=== PATIENT | male | born 1930 | race Caucasian/White ===

== ENCOUNTER 2017-03-12 09:04 | Outpatient (CLI) | payer MEDICARE, OTHER ==
[~2017-03-12 09:04] MED LIST: TAMS-12
[2017-03-12] MEDS ORDERED: REGADENOSON 0.4 MG/5 ML DISP.SYRIN IVP ONE (09:30)
== END 2017-03-12 23:59 | disposition home or self-care (01) ==
LOC: NM 09:04
PROVIDERS: ATTEND Internal Medicine Cardiovascular Disease
DX: I51.89 Other ill-defined heart diseases (principal)
CPT/HCPCS: 78452; A9502; J2785

== ENCOUNTER 2017-08-13 18:07 | Inpatient (IN) | payer MEDICARE, OTHER ==
[~2017-08-13] VITALS: Ht 157.5 cm; Wt 70.3 kg
[~2017-08-13 18:07] MED LIST changes: -TAMS-12; +TAMS-12 PO
--- NOTE | 2017-08-13 18:23 | NUR ---
PATIENT PRESENTS TO ER C/O NAUSEA, VOMITING, ABDOMINAL PAIN X 2 DAYS. DENIES BOWEL MOVEMENT FOR 2 DAYS NOW. A/OX 4. BREATHING EVEN AND UNLBAORED. NO SOB. VITALS STABLE. SAFETY AND COMFORT MEASURES IN PLACE. AWAITING MD ORDERS.
--- NOTE | 2017-08-13 18:52 | NUR ---
PATIENT TAKEN TO CT VIA STRETCHER.
[2017-08-13 18:57] LABS: BASOPHILS % (AUTO) 0.1 % (0.0-2.0); HEMATOCRIT 31 % (39-51); HEMOGLOBIN 10.1 g/dL (13.5-17.5); LYMPHOCYTES # (AUTO) 1.1 /CMM (0.8-4.8); MEAN CORPUSCULAR HEMOGLOBIN 26 PG (26.0-33.0); MEAN CORPUSCULAR HGB CONC 33 g/dl (31.0-36.0); MEAN CORPUSCULAR VOLUME 80 fL (80-96); MONOCYTES # (AUTO) 1.5 /CMM (0.1-1.30); MONOCYTES % (AUTO) 9.3 % (2.0-12.0); NEUTROPHILS # (AUTO) 13.6 /CMM (1.8-8.9); NEUTROPHILS % (AUTO) 83.6 % (43.0-81.0); PLATELET COUNT (AUTO) 281 /CMM (150-450); RDW COEFFICIENT OF VARIATION 14.8 (11.5-15.0); RED BLOOD CELL COUNT(AUTO) 3.84 MIL/uL (4.5-6.0); WHITE BLOOD COUNT (AUTO) 16.2 K/uL (4.3-11.0)
[2017-08-13] MEDS ORDERED: ONDANSETRON HCL/PF 4 MG/2 ML VIAL IVP ONE (19:00)
[2017-08-13] MEDS ORDERED: IV NS 0.9% 500 ML BAG IV ONE (19:00)
[2017-08-13] MEDS ORDERED: MORPHINE SULFATE INJ 2 MG/ML DISP.SYRIN IV ONE (19:00)
[2017-08-13 19:01] LABS: CALCIUM, SERUM 9.1 mg/dL (8.5-10.1); CARBON DIOXIDE 26 mmol/L (21-32); CHLORIDE 100 mmol/L (98-107); CREATININE 2.3 mg/dL (0.6-1.3); GLUCOSE 137 mg/dL (74-106); POTASSIUM 4.3 mmol/L (3.5-5.1); SODIUM SERUM 137 mmol/L (136-145); UREA NITROGEN, BLOOD 47 mg/dL (7-18)
[2017-08-13] MEDS ORDERED: ONDANSETRON HCL/PF 4 MG/2 ML VIAL ONE (19:03)
[2017-08-13] MEDS ORDERED: MORPHINE SULFATE INJ 4 MG/ML DISP.SYRIN ONE (19:03)
[2017-08-13 19:05] LABS: INR 0.98 (0.87-1.13); PROTHROMBIN TIME 10.2 SECS (9.5-12.7)
[2017-08-13 19:07] LABS: ALANINE AMINOTRANSFERASE 15 U/L (12-78); ALBUMIN 3.8 g/dL (3.4-5.0); ALKALINE PHOSPHATASE 67 U/L (46-116); ASPARTATE AMINOTRANSFERASE 17 U/L (15-37); BILIRUBIN,DIRECT 0.1 mg/dL (0.0-0.2); BILIRUBIN,TOTAL 0.7 mg/dL (0.2-1.0); LIPASE 110 U/L (73-393); TOTAL PROTEIN, SERUM 8.4 g/dL (6.4-8.2)
[2017-08-13 19:09] LABS: TROPONIN I < 0.017 ng/mL (0.00-0.056)
--- NOTE | 2017-08-13 19:58 | NUR ---
DR VELA AT BEDSIDE TALKING TO PATIENT AND FAMILY.
[2017-08-13] MEDS ORDERED: IV NS 0.9% 1,000 ML BAG IV ONE (20:00)
[2017-08-13] MEDS ORDERED: PIPERACILLIN /TAZOBACTAM 3.375 G in IV D5W 50 ML IV ONE (20:00)
[2017-08-13] MEDS ORDERED: HEPARIN INFUSION/D5W 500 ML IV PRN (20:00)
[2017-08-13] MEDS ORDERED: PIPERACILLIN /TAZOBACTAM 3.375 G VIAL IV ONE (20:03)
[2017-08-13] MEDS ORDERED: HEPARIN INFUSION/D5W 500 ML IV ONE (20:03)
--- NOTE | 2017-08-13 20:30 | NUR ---
RECHECKED PATIENT'S WEIGHT VIA BED SCALE, RECORDED WEIGHT IS 177LBS.
[2017-08-13] MEDS ORDERED: HEPARIN SODIUM, PORCINE 5000 UNITS/1 ML VIAL ONE (20:36)
--- NOTE | 2017-08-13 20:39 | NUR ---
HEPARIN BOLUS OF 6000UNITS GIVEN PER DR ZENDEJAS'S ORDERS. VERIFIED/WITNESS WITH MARCOS OLVERA DOSING.
--- NOTE | 2017-08-13 20:39 | NUR ---
HEPARIN BOLUS OF 6000UNITS GIVEN PER DR ZENDEJAS'S ORDERS. VERIFIED WITH MARCOS MANCINI DOSING.
--- NOTE | 2017-08-13 20:40 | NUR ---
started heparin infusion at this time at 1440 based on weight calculation with verification from second nurse Calvin. Patient is due for ptt draw post 6 hours, 0240. will endorse to floor nurse. will monitor for adverse reaction; s/s of bleeding.
--- NOTE | 2017-08-13 20:40 | NUR ---
VERIFIED HERPARIN INFUSION PER PROTOCOL WITH MARCOS OLVERA. PT MEDICATED.
[2017-08-13] MEDS ORDERED: IV NS 0.9% 1,000 ML IV PRN ×2 (21:24→22:30)
[2017-08-13] MEDS ORDERED: MAGNESIUM HYDROXIDE 30 ML UDC PO PRN ×2 (21:30→22:30)
[2017-08-13] MEDS ORDERED: ONDANSETRON HCL/PF 4 MG/2 ML VIAL IVP PRN ×2 (21:30→22:30)
[2017-08-13] MEDS ORDERED: HYDROCODONE/APAP 5/325MG 1 EACH TABLET PO PRN ×2 (21:30→22:30)
[2017-08-13] MEDS ORDERED: MAG HYDROX/AL HYDROX/SIMETH 30 ML UDC PO PRN ×2 (21:30→22:30)
[2017-08-13] MEDS ORDERED: Z GUARD REMEDY 2 OZ OINT TP PRN ×2 (21:30→22:30)
[2017-08-13] MEDS ORDERED: ACETAMINOPHEN 325 MG TABLET PO PRN ×2 (21:30→22:30)
[2017-08-13] MEDS ORDERED: MORPHINE SULFATE INJ 2 MG/ML DISP.SYRIN IV PRN (21:30)
--- NOTE | 2017-08-13 21:58 | NUR ---
PT ASSIGNED TO 325-1
--- NOTE | 2017-08-13 22:04 | NUR ---
Report given to Miguel RODRÍGUEZ for tele admission for darien.
[2017-08-13 22:15] VITALS: BP 153/72
--- NOTE | 2017-08-13 22:19 | NUR ---
Transferred to [facility] bed 324-2 via als protocol, no incident noted.
--- NOTE | 2017-08-13 22:40 | NUR ---
HEALTHCARE FACILITY ADMINISTRATOR NOTES RECEIVED PATIENT FROM ER ON A GURNEY TO ROOM 324-2, A & O X 3, GAMBIAN SPEAKING. RESP EVEN & NON LABORED. ON 2LPM O2 VIA NC. IV ACCESS TO LAC, INTACT PATENT, NO S/S OF INFECTION NOTED. PATIENT HAD C/O MILD ABDOMINAL PAIN BUT REFUSED TO TAKE MEDICINE AT THIS TIME, ABLE TO TOLERATE WITHOUT PAIN MEDICINE. CONTINENT OF B & BM, BRP. AMBULATORY WITHOUT ASSISTANCE.V/S CHECKED & DOCUMENTED. ON TELEMETRY MONITORING WITH SR 80. NO NAUSEA/VOMITING UPON ARRIVING TO THE UNIT. HAS LEFT HEARING AID. BED IN LOW LOCKED POSITION. ON HEPARIN IV DRIP ORDERED BY MD.CALL LIGHT WITHIN REACH. MD AWARE. ALL NEEDS ATTENDED & MET. WILL CONTINUE TO OBSERVE CLOSELY.
[2017-08-14] VITALS (11 sets, daily range): BP systolic 127–154; BP diastolic 48–89
[2017-08-14] MEDS ORDERED: PIPERACILLIN /TAZOBACTAM 3.375 G in IV D5W 50 ML IV SCH ×2
[2017-08-14] MEDS ORDERED: PIPERACILLIN /TAZOBACTAM 3.375 G VIAL IV ONE ×2 (00:40→05:52)
--- NOTE | 2017-08-14 01:00 | NUR ---
LOOKBACK COORDINATOR NOTES NEW IV LINE INSERTED ON LEFT HAND WITH GOOD BLOOD FLOW TO CONTINUE IV MEDS. WILL OBSERVE CLOSELY.
[2017-08-14 03:54] LABS: INR 1.08 (0.87-1.13); PROTHROMBIN TIME 11.2 SECS (9.5-12.7)
--- NOTE | 2017-08-14 04:35 | NUR ---
SHAREPOINT ADMIN NOTES PATIENTS PTT RESULTS WERE ABNORMAL 155, MADE AWARE WITH NEW ORDER TO HOLD HEPARIN DRIP & RECHECK PTT LEVEL AGAIN AT 0800. NOTED & CARRIED OUT. NO S/S OF ACTIVE BLEEDING NOTED AT THIS TIME. PATIENT IS SLEEPING COMFORTABLY. WILL MONITOR CLOSELY.
[2017-08-14] MEDS: PIPERACILLIN /TAZOBACTAM 3.375 G in IV D5W 50 ML IV SCH ×3 (06:17)
--- NOTE | 2017-08-14 06:26 | NUR ---
CLOCK AND WATCH HANDS DIPPER NOTES PATIENT SLEPT INTERMITTENTLY. HAD MILD C/O PAIN IN RIGHT ABDOMEN BUT REFUSED TO TAKE PAIN MEDICINE. NO OTHER DISCOMFORT, NO NAUSEA/VOMITING NOTED. HEPARIN DRIP ON HOLD ORDERED BY UVALDO JACKSON. IV ACCESS TO LAC & LEFT HAND, INTACT PATENT. IV FLUIDS RUNNING AT 75ML/HR. NPO. BED IN LOW LOCKED POSITION. CALL LIGHT WITHIN REACH. WILL ENDORSE TO AM SHIFT.
--- NOTE | 2017-08-14 06:42 | NUR ---
MS RN NOTES PATIENT IS ON O2 AT 2LPM VIA NC FOR EASY BREATHING & COMFORT. HOB IN SEMI MADDOX POSITION. MONITORING CLOSELY.
[2017-08-14] MEDS ORDERED: PANTOPRAZOLE 40 MG TABLET.DR PO SCH ×2 (07:30)
[2017-08-14] MEDS: DOCUSATE SODIUM 100 MG CAPSULE PO SCH ×2 (08:47→17:00)
[2017-08-14] MEDS: TAMSULOSIN 0.4 MG CAP.SR.24H PO SCH (08:47)
[2017-08-14] MEDS ORDERED: TAMSULOSIN 0.4 MG CAP.SR.24H PO SCH (09:00)
[2017-08-14] MEDS ORDERED: DOCUSATE SODIUM 100 MG CAPSULE PO SCH (09:00)
[2017-08-14] MEDS ORDERED: CARV6.252 PO (10:08)
[2017-08-14] MEDS ORDERED: ROSU20TA PO (10:08)
[2017-08-14] MEDS ORDERED: ASPI81TA2 PO (10:08)
[2017-08-14] MEDS ORDERED: LEVO50TA8 PO (10:08)
[2017-08-14] MEDS ORDERED: GLIM1TAB2 PO (10:08)
[2017-08-14] MEDS ORDERED: LOSA1TAB36 PO (10:08)
[2017-08-14] MEDS ORDERED: DUTA0.5C PO (10:08)
[2017-08-14] MEDS ORDERED: DULO30CA2 PO (10:08)
[2017-08-14] MEDS ORDERED: FURO40TA5 PO (10:08)
[2017-08-14] MEDS ORDERED: ISOS30TA6 PO (10:08)
[2017-08-14] MEDS ORDERED: ESOM40CA PO (10:08)
[2017-08-14] MEDS ORDERED: AMLO10TA2 PO (10:08)
[2017-08-14] MEDS ORDERED: TRAM50TA2 PO (10:11)
[2017-08-14] MEDS ORDERED: ALBU18HF2 INH (10:11)
[2017-08-14 10:16] LABS: HEMATOCRIT 27 % (39-51); HEMOGLOBIN 8.9 g/dL (13.5-17.5); LYMPHOCYTES # (AUTO) 1.5 /CMM (0.8-4.8); LYMPHOCYTES % (AUTO) 6.3 % (20.0-44.0); MEAN CORPUSCULAR HEMOGLOBIN 26 PG (26.0-33.0); MEAN CORPUSCULAR HGB CONC 33 g/dl (31.0-36.0); MEAN CORPUSCULAR VOLUME 80 fL (80-96); MONOCYTES # (AUTO) 2.9 /CMM (0.1-1.30); MONOCYTES % (AUTO) 12.5 % (2.0-12.0); NEUTROPHILS # (AUTO) 18.9 /CMM (1.8-8.9); NEUTROPHILS % (AUTO) 81.2 % (43.0-81.0); PLATELET COUNT (AUTO) 226 /CMM (150-450); RDW COEFFICIENT OF VARIATION 16.1 (11.5-15.0); RED BLOOD CELL COUNT(AUTO) 3.41 MIL/uL (4.5-6.0); WHITE BLOOD COUNT (AUTO) 23.3 K/uL (4.3-11.0)
--- NOTE | 2017-08-14 10:30 | NUR ---
MANAGER RETAIL STORE NOTES PATIENT SEEN AND EVALUATED BY DR. GALDAMEZ ORDERS TO DISCONTINUE HEPARIN, AND OBTAIN MEDICAL CLEARANCE FOR LAPAROSCOPY WITH POSSIBLY LAPAROTOMY. PATIENT AGREED FOR PROCEDURE AWAITING FOR CARDIO CLEARANCE.
[2017-08-14 10:32] LABS: CALCIUM, SERUM 8.1 mg/dL (8.5-10.1); CARBON DIOXIDE 23 mmol/L (21-32); CHLORIDE 104 mmol/L (98-107); CREATININE 2.1 mg/dL (0.6-1.3); GLUCOSE 132 mg/dL (74-106); MAGNESIUM 1.7 mg/dL (1.8-2.4); POTASSIUM 4.2 mmol/L (3.5-5.1); SODIUM SERUM 139 mmol/L (136-145); UREA NITROGEN, BLOOD 37 mg/dL (7-18)
[2017-08-14] MEDS: MORPHINE SULFATE INJ 2 MG/ML DISP.SYRIN IV PRN ×2 (10:41→18:29)
[2017-08-14 10:43] LABS: BAND % (MANUAL) 8 % (0.0-5.0); LYMPHOCYTES % (MANUAL) 5 % (16-48); MONOCYTES % (MANUAL) 9 % (0-11.0); NEUTROPHILS % (MANUAL) 78 (42-76)
[2017-08-14] MEDS: PIPERACILLIN /TAZOBACTAM 2.25 G in IV D5W 50 ML IV SCH ×2 (13:32→21:25)
--- NOTE | 2017-08-14 18:11 | NUR ---
RANGELAND MANAGEMENT SPECIALIST NOTES PATIENT RE EVALUATED BY DOCTOR GALDAMEZ WITH ORDERS TO CANCEL SCHEDULED SURGERY (LAPARASCOPY, WITH POSSIBLE LAPARATOMY). ORDERS TO START D5 1/2 NS WITH 20MEQ AT 150 MLS/HR. STAT CBC AND ROUTINE CBC IN THE AM. ORDERS NOTED AND CARRIED OUT. WILL CONTINUE TO MONITOR.
--- NOTE | 2017-08-14 18:40 | NUR ---
COMPUTER TEACHER NOTES PATIENT RE EVALUATED BY JAMES FUENTES NP WITH ORDERS TO TRANSFER TO ICU FOR CLOSER MONITORING. PATIENT WAS TRANSFERRED TO ICU. HEPARIN DRIP WILL BE STARTED AFTER PTT RESULTS. D5 1/2 NS WITH 20MEQ AT 150ML/HR. REPORT GIVEN TO TOVA AT BEDSIDE. .
[2017-08-14] MEDS ORDERED: FEE PK DOSING 1 MIN EA MC ONE (18:44)
[2017-08-14 18:49] LABS: BASOPHILS % (AUTO) 0.1 % (0.0-2.0); HEMATOCRIT 26 % (39-51); HEMOGLOBIN 8.5 g/dL (13.5-17.5); LYMPHOCYTES # (AUTO) 1.5 /CMM (0.8-4.8); LYMPHOCYTES % (AUTO) 8.5 % (20.0-44.0); MEAN CORPUSCULAR HEMOGLOBIN 27 PG (26.0-33.0); MEAN CORPUSCULAR HGB CONC 33 g/dl (31.0-36.0); MEAN CORPUSCULAR VOLUME 80 fL (80-96); MONOCYTES # (AUTO) 2.5 /CMM (0.1-1.30); MONOCYTES % (AUTO) 14.6 % (2.0-12.0); NEUTROPHILS # (AUTO) 13.3 /CMM (1.8-8.9); NEUTROPHILS % (AUTO) 76.8 % (43.0-81.0); PLATELET COUNT (AUTO) 208 /CMM (150-450); WHITE BLOOD COUNT (AUTO) 17.4 K/uL (4.3-11.0)
--- NOTE | 2017-08-14 18:55 | NUR ---
FINISHED CIGAR MAKER- RECEIVED PT TRANSFER FROM [facility]. BEDSIDE REPORT GIVEN FROM KRISTEL RODRÍGUEZ. PT A/O X3, SLOVAK SPEAKING. FAMILY AT BEDSIDE. SINUS RHYTHM ON THE MONITOR. PT ON 2L NC, NO SOB OR DISTRESS PRESENT. SAFETY MEASURES TAKEN: BED LOCKED AND IN LOW POSITION, SIDE RAILS UP X2, BED ALARM ON AND CALL LIGHT WITHIN REACH. WILL GIVE REPORT TO ONCOMING NURSE AND ENDORSE NEW ORDERS.
--- NOTE | 2017-08-14 19:30 | NUR ---
BOX MACHINE OPERATOR: RECEIVED AZERI SPEAKING (WT THAI BASIC WORDS) PT A/O X3. ON 2L 02 VIA NC WT NO ACUTE DISTRESS. NO C/O PAIN OR EVIDENCE OF DISCOMFORT. SR ON MONITOR. AFEBRILE. AWAITING PHARMACY TO DELIVER HEPARIN DRIP FOR RESTART WT PTT=35. ALSO AWAITING CONSENT FROM RESPONSIBLE REPUBLICAN FOR PICC LINE PLACEMENT. SAFETY PRECAUTION NOTED.
[2017-08-14] MEDS: VANCOMYCIN 500 MG in IV D5W 100 ML IV SCH (21:03)
[2017-08-14] MEDS: Potassium Chloride 20 MEQ in IV D5/0.45 NACL 1,000 ML IV PRN (21:25)
[2017-08-14] MEDS: FAMOTIDINE/PF INJ 20 MG/2 ML VIAL IV SCH (21:43)
[2017-08-14] MEDS: HEPARIN INFUSION/D5W 500 ML IV PRN (22:22)
--- NOTE | 2017-08-14 23:00 | NUR ---
ELECTRICAL CONTROLS ASSEMBLER: PICC LINE INSERTED ON JAN AND TOLERATED WELL. HEPARIN RESTARTED AT 2222 AT 1250U/HR AND WILL REDRAW PTT IN AM. NO ACTIVE BLEEDING, NO SIGNIFICANT TEX. WILL CONTINUE TO MONITOR.
[2017-08-15] VITALS (28 sets, daily range): BP systolic 115–157; BP diastolic 37–128
--- NOTE | 2017-08-15 02:30 | NUR ---
CURBER: PT ASLEEP, EASILY AROUSABLE WHEN TOUCHED. SR-SB ON MDM DEVELOPER. VS WITHIN HIS BASELINE. NO ACTIVE BLEEDING NOTED FROM HEPARIN INFUSION. WILL CONTINUE TO MONITOR.
[2017-08-15] MEDS: MORPHINE SULFATE INJ 2 MG/ML DISP.SYRIN IV PRN ×5 (03:23→21:18)
[2017-08-15] MEDS: PIPERACILLIN /TAZOBACTAM 2.25 G in IV D5W 50 ML IV SCH ×3 (04:31→21:39)
[2017-08-15] MEDS: Potassium Chloride 20 MEQ in IV D5/0.45 NACL 1,000 ML IV PRN ×3 (04:59→21:40)
[2017-08-15 05:09] LABS: HEMATOCRIT 24 % (39-51); HEMOGLOBIN 7.8 g/dL (13.5-17.5); LYMPHOCYTES # (AUTO) 1.2 /CMM (0.8-4.8); LYMPHOCYTES % (AUTO) 7.6 % (20.0-44.0); MEAN CORPUSCULAR HEMOGLOBIN 27 PG (26.0-33.0); MEAN CORPUSCULAR HGB CONC 33 g/dl (31.0-36.0); MEAN CORPUSCULAR VOLUME 81 fL (80-96); MONOCYTES # (AUTO) 2.4 /CMM (0.1-1.30); MONOCYTES % (AUTO) 15.3 % (2.0-12.0); NEUTROPHILS # (AUTO) 12.2 /CMM (1.8-8.9); NEUTROPHILS % (AUTO) 77.1 % (43.0-81.0); PLATELET COUNT (AUTO) 192 /CMM (150-450); RDW COEFFICIENT OF VARIATION 16.7 (11.5-15.0); RED BLOOD CELL COUNT(AUTO) 2.93 MIL/uL (4.5-6.0); WHITE BLOOD COUNT (AUTO) 15.8 K/uL (4.3-11.0)
[2017-08-15 05:29] LABS: CALCIUM, SERUM 7.7 mg/dL (8.5-10.1); CARBON DIOXIDE 23 mmol/L (21-32); CHLORIDE 104 mmol/L (98-107); GLUCOSE 185 mg/dL (74-106); POTASSIUM 3.9 mmol/L (3.5-5.1); SODIUM SERUM 137 mmol/L (136-145); UREA NITROGEN, BLOOD 30 mg/dL (7-18)
--- NOTE | 2017-08-15 05:50 | NUR ---
FEATHER STITCHER: PTT RESULT OF 72. DECREASED HEPARIN DRIP TO 1100U/HR FROM 1250U/HR WITNESSED BY MARCOS BUCHANAN. PT REMAINED A/O X3. NO ACUTE DISTRESS, NO EVIDENCE OF DISCOMFORT, NO OVERT BLEEDING NOTED. REFUSED BED/SPONGE BATH AT THIS TIME. PT VERBALIZED HE WANTED TO SLEEP MORE AND WILL CLEAN HIMSELF LATER. VS WITHIN HIS BASELINE. SAFETY PRECAUTION NOTED AT ALL TIMES.
--- NOTE | 2017-08-15 07:45 | NUR ---
ICU/RN - Initial Notes Received pt in bed alert and oriented x3, Liberian speaking. Respirations are even and unlabored. On o2 @ 2lpm via nasal cannula. Complains of abdominal discomfort. SR 66 on the monitor. JAN PICC noted with IVF infusing well. Heparin gtt infusing per protocol. Pt kept NPO as ordered. Safety and comfort measures in place. Will continue to monitor pt closely.
[2017-08-15] MEDS: DOCUSATE SODIUM 100 MG CAPSULE PO SCH ×2 (08:00→16:56)
[2017-08-15] MEDS: TAMSULOSIN 0.4 MG CAP.SR.24H PO SCH (08:01)
[2017-08-15] MEDS: FAMOTIDINE/PF INJ 20 MG/2 ML VIAL IV SCH ×2 (08:07→21:22)
--- NOTE | 2017-08-15 08:07 | NUR ---
ICU/RN - Notes Pt complains of abdominal pain on pain scale 10 out of 10. Administered Morphine 2mg IVP as ordered for PRN pain. Comfort measures rendered. Will reassess pain accordingly.
[2017-08-15] MEDS ORDERED: DIATR MEGLU/DIATRIZOATE SODIUM 30 ML BOTTLE (GASTROGRAPHIN) ONE (10:21)
--- NOTE | 2017-08-15 10:50 | NUR ---
ICU/RN - Notes Pt complains of abdominal pain 08/19, received one time order to give Morphine 4mg IVP and Zofran 4mg IVP. Order carried out. Will reassess pain accordingly.
[2017-08-15] MEDS ORDERED: MORPHINE SULFATE INJ 4 MG/ML DISP.SYRIN IV ONE (11:00)
--- NOTE | 2017-08-15 13:49 | NUR ---
ICU/RN - Notes Pt taken to radiology for CT abdomen/pelvis via ACLS protocol.
--- NOTE | 2017-08-15 16:50 | NUR ---
ICU/RN - Notes Lazaro Gan NP discussing with family CT Abdomen/pelvis results. New orders received. Will carry out.
[2017-08-15] MEDS: METRONIDAZOLE 500MG/ NS 100ML 500 MG in PREMIX 1 EA IV SCH (17:14)
--- NOTE | 2017-08-15 18:25 | NUR ---
ICU/RN - Notes Dr Del Cid speaking with family at bedside. New orders received to start pt on clear liquids until midnight, and stop Heparin gtt at midnight. Will carry out.
--- NOTE | 2017-08-15 19:00 | NUR ---
ICU/RN - Notes Pt eating dinner with no issues at this time. Report given to PM nurse for continuity of care.
--- NOTE | 2017-08-15 19:35 | NUR ---
MILIEU COORDINATOR: DR. ESCOBEDO (GI) CAME TO UNIT AND EXAMINED PT. ALSO SPOKE WT SONS DAYA AND SHAQUILLE RE PT CONDITION THAT GI HAS NOTHING TO DO WITH IT AND UP TO SURGICAL MANAGEMENT.
[2017-08-15] MEDS: HEPARIN INFUSION/D5W 500 ML IV PRN (19:56)
[2017-08-15] MEDS ORDERED: IV NS 0.9% 250 ML IV PRN (20:00)
[2017-08-15] MEDS: VANCOMYCIN 500 MG in IV D5W 100 ML IV SCH (20:25)
--- NOTE | 2017-08-15 20:35 | NUR ---
POWER EQUIPMENT MECHANICS INSTRUCTOR: STARTED PRBC TRANSFUSION BUT WAS ACCIDENTALLY RECORDED UNDER NILDA GARLAND RN. WILL MONITOR FOR ADVERSE CHANGES.
--- NOTE | 2017-08-15 23:30 | NUR ---
RN LABOR DELIVERY: 1 UNIT PRBC TRANSFUSED. NO ADVERSE REACTIONS AT THIS TIME. TEMP NOTED 99.0 AT THE START OF THE SHIFT AND NOW AT 99.9. CONTINUE COOLING MEASURES. TYLENOL GIVEN ORDERED FOR ABDOMINAL PAIN AFTER MORPHINE ADMINISTRATION AND VERBALIZED STILL HURTING (01/17). WILL CONTINUE TO MONITOR.
[2017-08-16] VITALS (25 sets, daily range): BP systolic 110–165; BP diastolic 38–89
--- NOTE | 2017-08-16 | NUR ---
MANAGER INTEL: STOPPED HEPARIN DRIP AND NOW ON NPO STATUS ORDERED. NO ACTIVE BLEEDING NOTED.
[2017-08-16] MEDS: METRONIDAZOLE 500MG/ NS 100ML 500 MG in PREMIX 1 EA IV SCH ×3 (00:34→16:12)
[2017-08-16] MEDS: MORPHINE SULFATE INJ 2 MG/ML DISP.SYRIN IV PRN ×5 (01:34→20:32)
--- NOTE | 2017-08-16 02:00 | NUR ---
HIGH VOLTAGE ELECTRICIAN: REMOVED LEFT ANTECUBITAL IV ACCESS PER PT REQUEST AND TOLERATED WELL. 02 THERAPY INCREASED TO 5LPM VIA NC D/T SOB AFTER ASSISTANCE WT REPOSITIONING. 02 SAT 96% AND ABOVE.
[2017-08-16] MEDS: LORAZEPAM INJ 2 MG/ML VIAL IV PRN ×2 (03:35→19:17)
--- NOTE | 2017-08-16 04:05 | NUR ---
LITHOGRAPH PRESS OPERATOR TINWARE: REASSESSED AFTER GIVEN ATIVAN (PT. WAS VERBALIZING IN BELARUSIAN VIA SPINNER CONCRETE PIPE THAT HE COULD NOT SLEEP WELL HE WAS ANXIOUS RE POSSIBLE SURGERY TODAY AND WANTED MED. TO CALM HIM DOWN) WT GOOD EFFECT. PT EYES CLOSED AT THIS TIME WT NO RESTLESSNESS. NO LABORED BREATHING. VS WITHIN HIS BASELINE. SAFETY PRECAUTION NOTED.
[2017-08-16 05:02] LABS: BASOPHILS % (AUTO) 0.2 % (0.0-2.0); EOSINOPHILS % (AUTO) 0.1 % (0.0-6.0); HEMATOCRIT 25 % (39-51); HEMOGLOBIN 8.5 g/dL (13.5-17.5); LYMPHOCYTES # (AUTO) 1.5 /CMM (0.8-4.8); LYMPHOCYTES % (AUTO) 12.7 % (20.0-44.0); MEAN CORPUSCULAR HEMOGLOBIN 27 PG (26.0-33.0); MEAN CORPUSCULAR HGB CONC 34 g/dl (31.0-36.0); MEAN CORPUSCULAR VOLUME 81 fL (80-96); MONOCYTES # (AUTO) 2.3 /CMM (0.1-1.30); MONOCYTES % (AUTO) 19.3 % (2.0-12.0); NEUTROPHILS # (AUTO) 7.9 /CMM (1.8-8.9); NEUTROPHILS % (AUTO) 67.7 % (43.0-81.0); PLATELET COUNT (AUTO) 169 /CMM (150-450); RDW COEFFICIENT OF VARIATION 15.9 (11.5-15.0); RED BLOOD CELL COUNT(AUTO) 3.13 MIL/uL (4.5-6.0); WHITE BLOOD COUNT (AUTO) 11.7 K/uL (4.3-11.0)
[2017-08-16 05:14] LABS: CALCIUM, SERUM 7.2 mg/dL (8.5-10.1); CARBON DIOXIDE 23 mmol/L (21-32); CHLORIDE 107 mmol/L (98-107); GLUCOSE 135 mg/dL (74-106); MAGNESIUM 1.5 mg/dL (1.8-2.4); POTASSIUM 4.5 mmol/L (3.5-5.1); SODIUM SERUM 138 mmol/L (136-145); UREA NITROGEN, BLOOD 21 mg/dL (7-18)
[2017-08-16] MEDS: PIPERACILLIN /TAZOBACTAM 2.25 G in IV D5W 50 ML IV SCH ×3 (05:21→20:06)
--- NOTE | 2017-08-16 05:45 | NUR ---
EMPLOYMENT PROGRAM REPRESENTATIVE:RECEIVED K=2.7, KIESHA TREVINO. AWAITING TO CALL BACK. NO TEX.
[2017-08-16] MEDS: Potassium Chloride 20 MEQ in IV D5/0.45 NACL 1,000 ML IV PRN (05:52)
--- NOTE | 2017-08-16 06:15 | NUR ---
EQUIPMENT MAINTENANCE SUPERINTENDENT: RELAYED MG=1.5 TO UVALDO JACKSON WT ORDER TO GIVE MG 3GM IV. NOTED AND CARRIED OUT. NO SIGNIFICANT ETX DURING THE SHIFT. REMAINED A/O X3. ABDOMINAL DISTENTION MORE PRONOUNCED COMPARED FROM A DAY AGO. MORPHINE AND ACETAMINOPHEN GIVEN NEEDED FOR ABDOMINAL PAIN WT MIN. TO GOOD RELIEF. REFUSED AM CARE AND WANTED TO SLEEP MORE AND SAID HE WILL DO IT LATER DURING THE DAY. ALL NEEDS MET. SAFETY PRECAUTION NOTED AT ALL TIMES. CALL LIGHT WITHIN REACH.
[2017-08-16] MEDS ORDERED: Magnesium 1GM/D5W 100ML PREMIX 100 ML IV ONE (06:16)
[2017-08-16] MEDS: Magnesium 1GM/D5W 100ML PREMIX 100 ML IV SCH ×3 (06:25→09:08)
[2017-08-16] MEDS: DOCUSATE SODIUM 100 MG CAPSULE PO SCH ×2 (07:53→16:18)
[2017-08-16] MEDS: TAMSULOSIN 0.4 MG CAP.SR.24H PO SCH (07:53)
[2017-08-16] MEDS: FAMOTIDINE/PF INJ 20 MG/2 ML VIAL IV SCH ×2 (07:56→20:06)
[2017-08-16 09:14] LABS: ABG BASE EXCESS -6.1 mmol/L; ABG OXYGEN SATURATION 91.7 % (92.0-98.5); ABG PCO2 30.2 mmHg (35.0-45.0); AaDO2 186.5 mmHg; COHb 0.3 % (0.5-1.5); MetHb 0.6 % (0.0-1.5); O2Hb 90.9 % (94.0-97.0); SITE, ABG Right Radial; VENT MODE, BG Nasal Cannula
[2017-08-16] MEDS ORDERED: BUMETANIDE INJ 4 MG in IV D5W 24 ML IV ONE (10:30)
--- NOTE | 2017-08-16 11:30 | NUR ---
ICU/LOWERATOR OPERATOR OF CARE REPORT RECEIVED FROM NURSE HICKMAN, ENDORSED TO CONTINUE CARE. ON GOING MONITORING.
--- NOTE | 2017-08-16 12:38 | NUR ---
ICU/RN ROUNDS - DR. JOY FOLLOW-UP ON ENDORSEMENT TO ASK NEPHROLOGISTS IF MD WANTS TO GIVE ANY LASIX POST BLOOD TRANSFUSION MIDNIGHT TONIGHT, PER DR. JOY, NO. NOTED, CHARGE NURSE MADE AWARE. MONITORING CONTINUED.
[2017-08-16] MEDS: METOPROLOL TARTRATE INJ 5 MG/5 ML AMPUL IVP SCH ×2 (15:24→20:30)
--- NOTE | 2017-08-16 17:00 | NUR ---
ICU/RN AFTERNOON ROUNDS NO ACUTE CHANGE OF CONDITION. MONITORING CONTINUED.
[2017-08-16] MEDS ORDERED: IV NS 0.9% 500 ML BAG IV ONE (19:00)
[2017-08-16 19:05] LABS: POTASSIUM 4.2 mmol/L (3.5-5.1)
--- NOTE | 2017-08-16 19:07 | NUR ---
RN;ICU; PT RECEIVED IN BED ALERT AND ABLE TO FOLLOW COMMANDS, BUT VERY ANXIOUS. PT NONCOMPLIANT AND ATTEMPTING TO GET OUT OF BED TO URINATE. PT EDUCATED SEVERAL TIMES NOT TO GET OUT OF BED HE MIGHT PULL OUT HIS PICC LINE OR FALL. CHARGE NURSE ED AT BEDSIDE FOR TRANSLATION PT IS ERITREAN SPEAKING ONLY. ED CHARGE NURSE OBTAINED ORDERS FOR CROUCH CATH PT IS RECEIVING BUMEX GTT AND THIS PATIENT EASILY DESATURATES WITH ACTIVITY. PT NOTED TO HAVE DIFFUSE ABDOMINAL PAIN WITH NOTABLE DISTENTION. PT RECEIVING MORPHINE PRN FOR PAIN MANAGEMENT. PER PREVIOUS SHIFT PT IS TO HAVE EXPLORATORY LAPAROTOMY TOMORROW BY DR. GALDAMEZ AND THAT ONE UNIT OF PRBC SHOULD BE TX AT 0000, WITH ONE UNIT ON HAND FOR SX. CONSENT FOR PROCEDURE, BLOOD AND ANESTHESIA IN CHART. FALL PRECAUTIONS IN PLACE. WILL CONTINUE TO MONITOR CLOSELY.
--- NOTE | 2017-08-16 19:08 | NUR ---
ICU/RN AM SHIFT END NOTES NO ACUTE CHANGE OF CONDITION NOTED DURING THE SHIFT. NEEDS MET. PT ENDORSED TO PM NURSE TO CONTINUE CARE. PT REMAINS ON NPO STATUS. ALSO ENDORSED TO PM NURSE TO TRANSFUSED 1 UNIT OF PRBC AT MIDNIGHT, THEN ORDER 1 UNIT OF PRBC FOR OR STANDBY FOR SCHEDULED LAP PROCEDURE IN AM AND COMPLETE PRE-OP CHECKLIST. CL WITHIN REACHED AND SAFETY MAINTAINED.
--- NOTE | 2017-08-16 19:26 | NUR ---
RN:ICU: CROUCH CATH INSERTED BY CHARGE NURSE ED. LARGE AMOUNT OF URINE DRAINING FROM CROUCH AFTER INSERTION. PT REPORTS RELIEVE BUT IS STILL EXTREMELY ANXIOUS AND DESATURATING DUE TO PAIN. PAIN MEDICATION NOT DUE YET, ATIVAN GIVEN FOR RESTLESSNESS. O2 SAT 90-91% ON 6 L. BED ALARM ON. WILL CONTINUE TO MONITOR CLOSELY.
--- NOTE | 2017-08-16 22:11 | NUR ---
RN:ICU: PT BECOMING CONFUSED, PER FAMILY MEMBER PT DOES NOT UNDERSTAND WHAT IS GOING ON. BLOOD SUGAR CHECKED AND IS WNL. VSS. WILL CONTINUE TO MONITOR CLOSELY.
[2017-08-17] VITALS (73 sets, daily range): BP systolic 87–176; BP diastolic 45–93
[2017-08-17] MEDS: METRONIDAZOLE 500MG/ NS 100ML 500 MG in PREMIX 1 EA IV SCH ×3 (00:06→17:33)
--- NOTE | 2017-08-17 01:15 | NUR ---
RN:ICU: PT RESTING COMFORTABLY IN BED. FAMILY WENT HOME FOR THE NIGHT. PT RECEIVING 1 UNIT PRBC PER MD ORDERS AT 0000, PRIOR TO PROCEDURE. PT IS SCHEDULED AT 0800 10/8 FOR LAPAROSCOPY WITH POSSIBLE LAPAROTOMY. ONE UNIT OF PRBC PLACED ON HOLD FOR OR. ALL CONSENTS SIGNED AND PLACED IN CHART. SPOKE WITH BLOOD BANK AND HE STATED THAT A NEW TYPE AND CROSS MUST BE ORDERED TOMORROW AT 1131 THE PREVIOUS DRAW WILL BE . SO IN ORDER TO OBTAIN ANY MORE BLOOD, A NEW TYPE AND SCREEN MUST BE OBTAINED. PER BLOOD BANK EVEN IF THE PROCEDURE LASTS PAST THE TIME WHEN THE TYPE AND SCREEN EXPIRES THEY WILL STILL BE ABLE TO USE THE PRBC ORDERED NOW. WILL ENDORSE TO ONCOMING SHIFT. DISCUSSED POC WITH FAMILY. VSS.
[2017-08-17] MEDS: METOPROLOL TARTRATE INJ 5 MG/5 ML AMPUL IVP SCH ×4 (03:44→20:59)
[2017-08-17] MEDS: PIPERACILLIN /TAZOBACTAM 2.25 G in IV D5W 50 ML IV SCH ×3 (04:47→20:15)
[2017-08-17 05:02] LABS: BASOPHILS % (AUTO) 0.2 % (0.0-2.0); EOSINOPHILS % (AUTO) 0.1 % (0.0-6.0); HEMATOCRIT 34 % (39-51); HEMOGLOBIN 11.2 g/dL (13.5-17.5); LYMPHOCYTES # (AUTO) 1.3 /CMM (0.8-4.8); MEAN CORPUSCULAR HEMOGLOBIN 27 PG (26.0-33.0); MEAN CORPUSCULAR HGB CONC 33 g/dl (31.0-36.0); MEAN CORPUSCULAR VOLUME 82 fL (80-96); MONOCYTES # (AUTO) 2.1 /CMM (0.1-1.30); MONOCYTES % (AUTO) 19.8 % (2.0-12.0); NEUTROPHILS # (AUTO) 7.1 /CMM (1.8-8.9); NEUTROPHILS % (AUTO) 67.9 % (43.0-81.0); PLATELET COUNT (AUTO) 216 /CMM (150-450); RDW COEFFICIENT OF VARIATION 15.8 (11.5-15.0); RED BLOOD CELL COUNT(AUTO) 4.12 MIL/uL (4.5-6.0); WHITE BLOOD COUNT (AUTO) 10.5 K/uL (4.3-11.0)
[2017-08-17 05:17] LABS: CALCIUM, SERUM 8.1 mg/dL (8.5-10.1); CARBON DIOXIDE 26 mmol/L (21-32); CHLORIDE 105 mmol/L (98-107); CREATININE 2.2 mg/dL (0.6-1.3); GLUCOSE 96 mg/dL (74-106); MAGNESIUM 1.9 mg/dL (1.8-2.4); PHOSPHORUS 3.4 mg/dL (2.5-4.9); SODIUM SERUM 138 mmol/L (136-145); UREA NITROGEN, BLOOD 22 mg/dL (7-18)
[2017-08-17 05:18] LABS: INR 1.1 (0.87-1.13); PROTHROMBIN TIME 11.4 SECS (9.5-12.7)
--- NOTE | 2017-08-17 05:29 | NUR ---
RN:ICU: ED CHARGE NURSE AT THE BEDSIDE FOR TRANSLATION. PT INFORMED THAT HE IS SCHEDULED FOR SURGERY AT 0800 THIS MORNING. PT UNDERSTANDS THE PROCEDURE THAT IS BEING PERFORMED AND DOES NOT HAVE ANY FURTHER QUESTIONS AT THIS TIME. PT HAS BEEN NPO FOR THE FULL DURATION OF THIS SHIFT. OFFERED AM CARE TO PATIENT, BUT PATIENT DECLINED. PT CONTINUES TO DECLINE ANY PAIN MEDICATION OR ANTIANXIETY MEDICATIONS AT THIS TIME. PT STATES THAT HE JUST WANTS TO GO HOME SOON. REASSURANCE AND PREOP TEACHING PERFORMED WITH ED AT THE BEDSIDE FOR TRANSLATION. NO ACUTE DISTRESS. VSS. WILL CONTINUE TO MONITOR CLOSELY.
--- NOTE | 2017-08-17 06:56 | NUR ---
RN;ICU: POWER SWEEPER OPERATOR AT BEDSIDE ASSESSING PT. NEW ORDERS TO GIVE PT LASIX 40MG IV X 1 BEFORE SURGERY. UPDATES PROVIDED. WILL ENDORSE TO ONCOMING SHIFT.
[2017-08-17] MEDS ORDERED: FUROSEMIDE 40 MG/4 ML VIAL ONE (06:59)
[2017-08-17] MEDS ORDERED: FUROSEMIDE 20 MG/2 ML VIAL IV SCH (07:00)
[2017-08-17] MEDS ORDERED: FUROSEMIDE 20 MG/2 ML VIAL IV ONE (07:00)
--- NOTE | 2017-08-17 07:15 | NUR ---
RN:ICU: UNABLE TO SCAN LASIX DOSE DESPITE ATTEMPTING SEVERAL TIMES, ERROR COMES UP WHEN TRYING TO SCAN LASIX THAT IT WAS A ONE TIME ORDER AND IT COULD NOT BE SCANNED AGAIN. NON ADMIN DOCUMENTED FOR SECOND LASIX ORDER. ONLY LASIX 40MG TO BE GIVEN ONCE PER CARIOLOGIST. ORDERS CARRIED OUT.
--- NOTE | 2017-08-17 07:15 | NUR ---
SERVICE DESK AGENT NOTES RECEIVED PATIENT AOX1-2 CONFUSED , NOT IN ACUTE DISTRESS , RESPIRATIONS EVEN AND UNLABORED WITH SPO2 OF 97% VIA 6LPM NC , SR 75 ON BEDSIDE MONITOR , FC DRAINING WELL VIA GRAVITY WITH CLEAR YELLOW URINE , ABDOMEN DISTENDED NOTED WITH PAIN UPON PALPATION , JAN PICC LINE WITH NS @ TKO INFUSING WELL , ALL NEEDS ATTENDED , BED ON LOW AND LOCKED POSITION , SIDE RAILS X3 ,CALL LIGHT WITHIN REACH , HOB @ 35 , WILL CONTINUE TO MONITOR
[2017-08-17] MEDS ORDERED: ROCURONIUM BROMIDE 50 MG/5 ML ONE (07:45)
[2017-08-17] MEDS ORDERED: SUCCINYLCHOLINE CHLORIDE 20 MG/ML VIAL ONE (07:45)
[2017-08-17] MEDS ORDERED: HYDROMORPHONE INJ 2 MG/ML DISP.SYRIN ONE (07:45)
[2017-08-17] MEDS ORDERED: MIDAZOLAM HCL 2 MG/2ML VIAL ONE (07:48)
--- NOTE | 2017-08-17 07:48 | NUR ---
TELESALES SPECIALIST NOTES PT WAS TRANSFERRED TO OR , STABLE AT THIS TIME , AFEBRILE , ON 6LPM NC SPO2 OF 98% WITH NO S/S OF DISTRESS , CONSENT VERIFIED , PRE OP CHECKLIST DONE , JAMES JEWELRY SETTER AT BEDSIDE , DISCUSSED LABS , PT LATEST V/S , JEWELRY SETTER AWARE .
--- NOTE | 2017-08-17 08:00 | NUR ---
KEYSEATING MACHINE SET UP OPERATOR NOTES VITAL SIGNS , AND FLOW SHEET UNABLE TO DO PT IS OUT OF THE UNIT FOR SURGERY . WILL HOLD MEDS AT THIS TIME .
[2017-08-17] MEDS: DOCUSATE SODIUM 100 MG CAPSULE PO SCH ×2 (08:59→16:11)
[2017-08-17] MEDS: TAMSULOSIN 0.4 MG CAP.SR.24H PO SCH (08:59)
[2017-08-17] MEDS: FAMOTIDINE/PF INJ 20 MG/2 ML VIAL IV SCH (09:49)
--- NOTE | 2017-08-17 09:52 | NUR ---
HARDWARE SALES ASSISTANT NOTES POST OP ORDERS RECEIVED AND CARRIED OUT , FAXED ORDERS TO THE PHARMACY , STAT CHEST XRAY ORDERED TO CHECK NG AND ETT PLACEMENT , RECEIVED PATIENT S/P EX LAP . SURGICAL SITE DRESSING C/D/I WITH ABDOMINAL BIDDER NO BLEEDING NOTED , ORALLY INTUBATED ETT IN PLACE WITH VENTILATOR SETTINGS OF AC 14 TV 500 FIO2 50% AND PEEP OF 5 WITH SPO2 OF 100% , L NARE NGT IN PLACE VERIFIED VIA AUSCULTATION NOTED WITH GURGLING SOUND AROUND THE STOMACH , ATTACHED TO LOW INTERMITTENT SUCTION ORDERED NOTED WITH DARK GREENISH OUTPUT . WILL CONTINUE TO MONITOR
--- NOTE | 2017-08-17 10:00 | NUR ---
RT PATIENT RECEIVED POST OP VIA OR, ORALLY INTUBATED WITH 8.0 ETT MARKED AT 22CM AT THE GUMS. PER DR DORADO ORDER ETT PULLED OUT 2CM AND SECURED VIA ANCHOR FAST AT 20CM GUM LINE. VENT SETTINGS ORDERED AC 14, 500, 50% PEEP OF 5. VENT ALARMS CHECKED + AUDIBLE. CUFF PRESSURE INTEGRATED MARKETING SPECIALIST. B/S DIM BILAT. SX'D WITH NO SECRETIONS AT THIS TIME. AMBU BAG AT HOB. Addendum: 08/17/17 at 1041 by CAILIN ENGEL RT Amended: Links added.
[2017-08-17 11:16] LABS: ABG BASE EXCESS -5.3 mmol/L; ABG OXYGEN SATURATION 94.5 % (92.0-98.5); ABG PCO2 43.3 mmHg (35.0-45.0); ABG PH 7.302 (7.350-7.450); ABG PO2 79.9 mmHg (75.0-100.0); AaDO2 227.9 mmHg; COHb 0.6 % (0.5-1.5); MetHb 0.5 % (0.0-1.5); O2Hb 93.5 % (94.0-97.0); PEEP,BG 5 cm H2O; SITE, ABG Right Radial; VENT MODE, BG AC 14 500 50% +5; VT, ABG 500 mL
--- NOTE | 2017-08-17 12:08 | NUR ---
BUDGET COUNSELOR NOTES CALLED DR GALDAMEZ , VERIFIED ORDERS , PER MD START PT ON MORPHINE 4MG Q2H PRN , STOP HEPARIN ORDER AND START PT ON LOVENOX ORDERED , VERIFIED IVF ORDER OF D5 1/2 NS WITH 20MEQ KCL @ 125ML/HR THE PT HAS CHF , PER MD DECREASE IT TO 50ML/HR . ORDERS CARRIED OUT
[2017-08-17] MEDS: PROPOFOL 100 ML IV PRN ×2 (12:37→20:13)
[2017-08-17] MEDS: METOCLOPRAMIDE HCL 10 MG/2 ML VIAL IV SCH ×2 (12:54→17:33)
[2017-08-17] MEDS: IV PREMIX D5 1/2NS + KCL 1,000 ML IV PRN (13:06)
--- NOTE | 2017-08-17 13:20 | NUR ---
PRINT BINDING AND FINISHING WORKER NOTES SEEN AND EVALUATED BY JAMES ROTOR PLATE WASHER , DISCUSSED LABS , CHEST XRAY , , S/P EX LAP , MESENTERIC MASS SEEN , BIOPSY RESULT PENDING , SMALL BOWEL RESECTION DONE , ABDOMINAL INCISION C/D/I , NGT ON LOW INTERMITTENT SUCTION NOTED WITH GREENISH OUTPUT , AFEBRILE , BP OF 90-100 , ROTOR PLATE WASHER AWARE
--- NOTE | 2017-08-17 13:36 | NUR ---
NON DESTRUCTIVE EVALUATION MANAGER NOTES CALLED DR GALDAMEZ , VERIFIED POST OP ORDER FOR VANCOMYCIN AND ZOSYN , DISCUSSED PT LABS , PER MC CHANGE IT TO PHARMACY TO DOSE .
[2017-08-17] MEDS ORDERED: NOREPINEPHRINE 16 MG in IV D5W 500 ML IV PRN (14:00)
[2017-08-17] MEDS ORDERED: VANCOMYCIN 500 MG in IV D5W 100ml IV SCH (14:00)
[2017-08-17] MEDS: VANCOMYCIN 0.75 GM in IV D5W 250 ML IV SCH (16:01)
--- NOTE | 2017-08-17 16:11 | NUR ---
OPERATOR CAVITY PUMP NOTES LOPRESSOR 2.5MG HELD DUE TO LOW BP 107 / 55 HR 67 ,
--- NOTE | 2017-08-17 17:28 | NUR ---
INGREDIENT SCALER NOTES SEEN AND EVALUATED BY CHARLES BAILON , DISCUSSED PT LABS , AFEBRILE SBP 90-100 INTUBATED , S/P EX LAP DISCUSSED POST OP DIAGNOSIS , NGT ON LOW INTERMITTENT SUCTION DRAINING WITH MINIMAL DARK GREEN OUTPUT , DR RIVAS RESTARTED VANCOMYCIN PHARMACY TO DOSE . PRINTER MACHINE AWARE
--- NOTE | 2017-08-17 20:50 | NUR ---
received pt from day shift, sedated on Diprivan at 25mcg, SR, on the vent, lungs congested, no edema, NG to LIS some drainage, f/c good output, mid abdominal incision observed, vinita and dressing intact, no bleeding noted, no s/s of infection, v/s stable, no pain, pt turned and repositioned.
[2017-08-18] VITALS (58 sets, daily range): BP systolic 100–166; BP diastolic 43–74
--- NOTE | 2017-08-18 | NUR ---
pt is resting in the bed, sedated on Diprivan at 25mcg, v/s stable, no pain, pt turned and repositioned q2hrs.
[2017-08-18] MEDS: METOCLOPRAMIDE HCL 10 MG/2 ML VIAL IV SCH ×4 (00:26→17:21)
[2017-08-18] MEDS: METRONIDAZOLE 500MG/ NS 100ML 500 MG in PREMIX 1 EA IV SCH ×3 (00:26→17:21)
[2017-08-18] MEDS: MORPHINE SULFATE INJ 2 MG/ML DISP.SYRIN IV PRN ×3 (03:11→19:00)
[2017-08-18] MEDS: METOPROLOL TARTRATE INJ 5 MG/5 ML AMPUL IVP SCH ×4 (03:14→21:02)
--- NOTE | 2017-08-18 04:21 | NUR ---
pt is resting in the bed, no acute distress overnight, sedated on Diprivan at 30mcg, v/s stable, no pain, restraints on, pt cleaned, changed and repositioned q2hrs.
[2017-08-18] MEDS: PIPERACILLIN /TAZOBACTAM 2.25 G in IV D5W 50 ML IV SCH ×3 (04:26→21:02)
[2017-08-18 05:01] LABS: BASOPHILS % (AUTO) 0.1 % (0.0-2.0); HEMATOCRIT 32 % (39-51); HEMOGLOBIN 10.6 g/dL (13.5-17.5); LYMPHOCYTES # (AUTO) 0.7 /CMM (0.8-4.8); LYMPHOCYTES % (AUTO) 7.2 % (20.0-44.0); MEAN CORPUSCULAR HEMOGLOBIN 27 PG (26.0-33.0); MEAN CORPUSCULAR HGB CONC 33 g/dl (31.0-36.0); MEAN CORPUSCULAR VOLUME 81 fL (80-96); MONOCYTES # (AUTO) 1.1 /CMM (0.1-1.30); MONOCYTES % (AUTO) 10.9 % (2.0-12.0); NEUTROPHILS # (AUTO) 8.2 /CMM (1.8-8.9); NEUTROPHILS % (AUTO) 81.8 % (43.0-81.0); PLATELET COUNT (AUTO) 234 /CMM (150-450); RDW COEFFICIENT OF VARIATION 16.2 (11.5-15.0)
[2017-08-18 05:11] LABS: CALCIUM, SERUM 7.8 mg/dL (8.5-10.1); CARBON DIOXIDE 22 mmol/L (21-32); CHLORIDE 104 mmol/L (98-107); CREATININE 2.7 mg/dL (0.6-1.3); GLUCOSE 182 mg/dL (74-106); MAGNESIUM 1.8 mg/dL (1.8-2.4); POTASSIUM 4.1 mmol/L (3.5-5.1); SODIUM SERUM 139 mmol/L (136-145); UREA NITROGEN, BLOOD 36 mg/dL (7-18)
[2017-08-18] MEDS ORDERED: ENOXAPARIN SODIUM 30 MG/0.3 ML DISP.SYRIN ONE (05:24)
[2017-08-18] MEDS: ENOXAPARIN SODIUM 30 MG/0.3 ML DISP.SYRIN SQ SCH (06:10)
[2017-08-18] MEDS ORDERED: ENOXAPARIN SODIUM 40 MG/0.4 ML DISP.SYRIN SQ SCH (07:00)
--- NOTE | 2017-08-18 07:45 | NUR ---
REEL ASSEMBLER; ASSESSMENT RECEIVED PT VENTED VIA ETT, SEE FLOW SHEET FOR VENT SETTINGS. PT SEDATED ON DIPRIVAN DRIP AT 35MCG/KG/MIN. CROUCH CATH INTACT DRAINING TO GRAVITY WISAM COLOR URINE. NG TUBE TO LEFT NARE POSITIVE FOR ASPIRATION, AT LOW INTERMITTENT SUCTION DARK GREEN DRAINAGE NOTED. ABD MIDLINE INCISION NOTED COVERED WITH SURGICAL DRESSING AND ABD BINDER. NOT DRAINAGE NOTED. NO ACUTE DISTRESS NOTED. WILL CONTINUE TO MONITOR.
--- NOTE | 2017-08-18 08:00 | NUR ---
AIR BRAKE RIGGER; SEDATION NOTED PT AWAKE REACHING FOR ETT. PT OPENS EYES AND IS ABLE TO TRACK. JAKY WRIST RESTRAINS SECURED DIPRIVAN INCREASED FOR PT SAFETY AND COMFORT.
[2017-08-18] MEDS: PANTOPRAZOLE 40 MG VIAL IV SCH (08:01)
[2017-08-18] MEDS: TAMSULOSIN 0.4 MG CAP.SR.24H PO SCH (08:01)
[2017-08-18] MEDS: DOCUSATE SODIUM 100 MG CAPSULE PO SCH ×2 (08:01→17:00)
[2017-08-18 08:15] LABS: ABG BASE EXCESS -2.5 mmol/L; ABG OXYGEN SATURATION 97.7 % (92.0-98.5); ABG PCO2 35.6 mmHg (35.0-45.0); ABG PH 7.404 (7.350-7.450); AaDO2 200.5 mmHg; COHb 0.3 % (0.5-1.5); MetHb 0.6 % (0.0-1.5); O2Hb 96.8 % (94.0-97.0); PEEP,BG 5 cm H2O; SITE, ABG Left Radial; VENT MODE, BG AC 14 550 50%+5; VT, ABG 550 mL
[2017-08-18] MEDS: PROPOFOL 100 ML IV PRN (10:09)
[2017-08-18] MEDS: IV PREMIX D5 1/2NS + KCL 1,000 ML IV PRN (14:51)
[2017-08-18 15:17] LABS: ABG BASE EXCESS -2.4 mmol/L; ABG OXYGEN SATURATION 96.9 % (92.0-98.5); ABG PCO2 33.2 mmHg (35.0-45.0); ABG PH 7.426 (7.350-7.450); ABG PO2 95.4 mmHg (75.0-100.0); AaDO2 151.6 mmHg; COHb 0.3 % (0.5-1.5); MetHb 0.6 % (0.0-1.5); PEEP,BG 5 cm H2O; SITE, ABG Left Radial; VENT MODE, BG simv4 ps12
[2017-08-18] MEDS: VANCOMYCIN 0.75 GM in IV D5W 250 ML IV SCH (15:52)
--- NOTE | 2017-08-18 19:28 | NUR ---
OCCUPATIONAL SAFETY SPECIALIST NOTES RECEIVED PT IN BED, AWAKE. A/O X3, KOREAN SPEAKING. TELE READS SR AT 73 BPM. ON O2 VIA NC AT 4 LPM, LISA WELL. NPO AT THIS TIME WITH LEFT NARE NGT TO LIS, NO DRAINAGE NOTED. CROUCH CATH PRESENT, DRAINING WELL. JAN PICC RUNNING D51/2NS+ 20 MEQ KCL AT 50 ML/HR. ABDOMINAL INCISION PRESENT WITH ABDOMINAL BINDER IN PLACE. PT DENIES PAIN AT THIS TIME. NO BLEEDING NOTED AT INCISION SITE. HOB ELEVATED, SIDE RAILS X2. CALL LIGHT WITHIN REACH. ALL NEEDS MET AT THIS TIME.
[2017-08-19] VITALS (15 sets, daily range): BP systolic 130–156; BP diastolic 48–73
--- NOTE | 2017-08-19 | NUR ---
SQUEAK RATTLE AND LEAK REPAIRER NOTES PT GIVEN BED BATH, LINENS CHANGED. PT DENIES PAIN. NO BLEEDING NOTED AT SURGICAL SITE. NO BM. HYPOACTIVE BOWEL SOUNDS.
[2017-08-19] MEDS: METOPROLOL TARTRATE INJ 5 MG/5 ML AMPUL IVP SCH ×2 (03:30→09:17)
[2017-08-19 05:05] LABS: BASOPHILS % (AUTO) 0.3 % (0.0-2.0); EOSINOPHILS % (AUTO) 0.4 % (0.0-6.0); HEMATOCRIT 32 % (39-51); HEMOGLOBIN 10.5 g/dL (13.5-17.5); LYMPHOCYTES # (AUTO) 1.9 /CMM (0.8-4.8); LYMPHOCYTES % (AUTO) 17.5 % (20.0-44.0); MEAN CORPUSCULAR HEMOGLOBIN 27 PG (26.0-33.0); MEAN CORPUSCULAR HGB CONC 33 g/dl (31.0-36.0); MEAN CORPUSCULAR VOLUME 82 fL (80-96); MONOCYTES # (AUTO) 1.8 /CMM (0.1-1.30); MONOCYTES % (AUTO) 17.2 % (2.0-12.0); NEUTROPHILS # (AUTO) 6.9 /CMM (1.8-8.9); NEUTROPHILS % (AUTO) 64.6 % (43.0-81.0); PLATELET COUNT (AUTO) 244 /CMM (150-450); RED BLOOD CELL COUNT(AUTO) 3.89 MIL/uL (4.5-6.0); WHITE BLOOD COUNT (AUTO) 10.6 K/uL (4.3-11.0)
[2017-08-19] MEDS: PIPERACILLIN /TAZOBACTAM 2.25 G in IV D5W 50 ML IV SCH ×3 (05:10→20:51)
[2017-08-19] MEDS: METOCLOPRAMIDE HCL 10 MG/2 ML VIAL IV SCH ×4 (05:11→17:21)
[2017-08-19] MEDS: MORPHINE SULFATE INJ 2 MG/ML DISP.SYRIN IV PRN ×2 (05:11→15:44)
[2017-08-19 05:18] LABS: CALCIUM, SERUM 7.8 mg/dL (8.5-10.1); CARBON DIOXIDE 24 mmol/L (21-32); CHLORIDE 108 mmol/L (98-107); CREATININE 2.4 mg/dL (0.6-1.3); GLUCOSE 106 mg/dL (74-106); POTASSIUM 3.9 mmol/L (3.5-5.1); SODIUM SERUM 142 mmol/L (136-145); UREA NITROGEN, BLOOD 35 mg/dL (7-18)
--- NOTE | 2017-08-19 07:14 | NUR ---
SUPERINTENDENT PLANT PROTECTION NOTES RECEIVED PATIENT AOX2-3 TAMAZIGHT SPEAKING , NOT IN ACUTE DISTRESS , RESPIRATIONS EVEN AND UNLABORED WITH SPO2 OF 100% VIA 4LPM NC , SR 62 ON BEDSIDE MONITOR , L NARE NGT ON LOW INTERMITTENT SUCTION DRAINING WITH BROWNISH THICK SECRETION , FC DRAINING VIA GRAVITY WITH CLEAR YELLOW URINE , ON KCI MATTRESS , ABDOMINAL DRESSING C/D/I WITH BINDER , JAN PICC LINE PATENT AND INTACT WITH D5 1/2 NS WITH 20 MEQ KCL @50ML/HR INFUSING WELL , ALL NEEDS ATTENDED , BED ON LOW AND LOCKED POSITION , SIDE RAILS X2 ,CALL LIGHT WITHIN REACH , HOB @ 35 , WILL CONTINUE TO MONITOR .
[2017-08-19] MEDS: PANTOPRAZOLE 40 MG VIAL IV SCH (08:35)
[2017-08-19] MEDS: METRONIDAZOLE 500MG/ NS 100ML 500 MG in PREMIX 1 EA IV SCH ×3 (08:35)
[2017-08-19] MEDS: DOCUSATE SODIUM 100 MG CAPSULE PO SCH ×2 (08:35→17:21)
[2017-08-19] MEDS: TAMSULOSIN 0.4 MG CAP.SR.24H PO SCH (08:36)
[2017-08-19] MEDS: ENOXAPARIN SODIUM 30 MG/0.3 ML DISP.SYRIN SQ SCH (08:40)
--- NOTE | 2017-08-19 08:40 | NUR ---
LIFT BUILDER WHOLE NOTES SEEN AND EVALUATED BY DR GALDAMEZ , DISCUSSED LABS , V/S STABLE AFEBRILE , DRESSING C/D/I WITH NO S/S OF BLEEDING AND INFECTION , PER MD DISCONTINUE NGT , START PT ON CLEAR LIQUID DIET , DRESSING CHANGE PRN ORDER PHYSICAL THERAPY , ORDERS CARRIED OUT .
--- NOTE | 2017-08-19 09:03 | NUR ---
DISEASE CASE MANAGER RN NOTES SEEN AND EVALUATED BY JAMES BAILON , DISCUSSED LABS , V/S STABLE ON 2LPM NC SPO2 OF 10% , NO DISTRESS NOTED , ABDOMINAL INCISION NO S/S OF INFECTION AND BLEEDING , PER ROLL INSPECTOR DOWNGRADE PT TO TELEMETRY , STARTED PT ON INCENTIVE SPIROMETER , Addendum: 08/19/17 at 1839 by CARLA SHORT RN SPO2 OF 100%
--- NOTE | 2017-08-19 09:18 | NUR ---
DAYCARE DIRECTOR NOTES SPOKE WITH JAMES , DISCUSSED THAT MEDICATION RECONCILIATION WAS NOT REVIEWED , RISK MANAGEMENT INTERNSHIP AWARE LOPRESSOR 2.5MG IVP HELD HR IS 55 , BP 133/55 , WILL CONTINUE TO MONITOR
[2017-08-19] MEDS ORDERED: DEXTROSE 50%-WATER 50 ML DISP.SYRIN IV PRN (09:30)
[2017-08-19] MEDS ORDERED: INSULIN REGULAR, HUMAN 100 UNIT/ML 3 ML VIAL SQ PRN (09:30)
[2017-08-19] MEDS: BLOOD SUGAR DIAGNOSTIC 1 EACH STRIP IN SCH ×3 (12:38→21:08)
[2017-08-19] MEDS: VANCOMYCIN 0.75 GM in IV D5W 250 ML IV SCH (14:38)
[2017-08-19] MEDS: CARVEDILOL 6.25 MG TABLET PO SCH (17:21)
[2017-08-19] MEDS ORDERED: IV NS 0.9% 250 ML IV PRN (17:30)
--- NOTE | 2017-08-19 17:30 | NUR ---
BLENDING LINE ATTENDANT NOTES SEEN AND EVALUATED BY DR KRISHNAN , DISCUSSED LABS , NOTIFIED THAT PT IS TOLERATING CLEAR LIQUID DIET , VERIFIED IF HE WANTS TO CONTINUE IVF ORDERED ,PER MD MOSES IVF AND ADD NS @ TKO ,
--- NOTE | 2017-08-19 18:59 | NUR ---
RN CLOSING NOTES PATIENT STABLE AT THIS TIME, NOT IN ACUTE DISTRESS , RESPIRATIONS EVEN AND UNLABORED , ON 2LPM NC , SR 70 ON TELE MONITOR, FC DRAINING VIA GRAVITY WITH CLEAR YELLOW URINE , ON KCI MATTRESS , ABDOMINAL DRESSING C/D/I WITH BINDER , JAN PICC LINE PATENT AND INTACT WITH NS @ TKO INFUSING WELL , ALL NEEDS ATTENDED , BED ON LOW AND LOCKED POSITION , SIDE RAILS X2 ,CALL LIGHT WITHIN REACH , HOB @ 35 , REPORT GIVEN TO PM NURSE FOR CONTINUITY OF CARE
--- NOTE | 2017-08-19 19:25 | NUR ---
ELECTRIC MOTOR WINDER INITIAL NOTE PT RECEIVED IN NO ACUTE DISTRESS. ON TELE WITH SB 56. PT ON 4LPM WITH COOL AEROSOL. A/O X2/3 CUBAN SPEAKING. F/C IS CLEAN DRY AND INTACT. JAN PICC LINE THAT IS CLEAN DRY AND INTACT RUNNING FLUIDS/ATB. COMFORT AND SAFETY MEASURES TO BE PLACED. WILL CONTINUE TO MONITOR FOR ANY CHANGES.
[2017-08-19] MEDS: hydrALAZINE HCL 25 MG TABLET PO SCH (20:51)
[2017-08-19] MEDS: ATORVASTATIN 10 MG TABLET PO SCH (21:01)
[2017-08-20] VITALS: BP 156/55
[2017-08-20] MEDS: METOCLOPRAMIDE HCL 10 MG/2 ML VIAL IV SCH ×4 (00:12→17:30)
[2017-08-20 04:00] VITALS: BP 153/45
[2017-08-20] MEDS: hydrALAZINE HCL 25 MG TABLET PO SCH ×3 (04:31→21:07)
[2017-08-20] MEDS: PIPERACILLIN /TAZOBACTAM 2.25 G in IV D5W 50 ML IV SCH ×3 (04:32→21:32)
[2017-08-20 06:33] LABS: BASOPHILS % (AUTO) 0.2 % (0.0-2.0); EOSINOPHILS # (AUTO) 0.1 /CMM (0.0-0.7); EOSINOPHILS % (AUTO) 1.1 % (0.0-6.0); HEMATOCRIT 31 % (39-51); HEMOGLOBIN 10.4 g/dL (13.5-17.5); LYMPHOCYTES # (AUTO) 1.5 /CMM (0.8-4.8); LYMPHOCYTES % (AUTO) 15.7 % (20.0-44.0); MEAN CORPUSCULAR HEMOGLOBIN 27 PG (26.0-33.0); MEAN CORPUSCULAR HGB CONC 33 g/dl (31.0-36.0); MEAN CORPUSCULAR VOLUME 81 fL (80-96); MONOCYTES # (AUTO) 1.6 /CMM (0.1-1.30); MONOCYTES % (AUTO) 16.8 % (2.0-12.0); NEUTROPHILS # (AUTO) 6.3 /CMM (1.8-8.9); NEUTROPHILS % (AUTO) 66.2 % (43.0-81.0); PLATELET COUNT (AUTO) 228 /CMM (150-450); RDW COEFFICIENT OF VARIATION 16.6 (11.5-15.0); RED BLOOD CELL COUNT(AUTO) 3.85 MIL/uL (4.5-6.0); WHITE BLOOD COUNT (AUTO) 9.6 K/uL (4.3-11.0)
[2017-08-20 06:46] LABS: CALCIUM, SERUM 7.7 mg/dL (8.5-10.1); CARBON DIOXIDE 24 mmol/L (21-32); CHLORIDE 109 mmol/L (98-107); CREATININE 2.1 mg/dL (0.6-1.3); GLUCOSE 98 mg/dL (74-106); MAGNESIUM 1.6 mg/dL (1.8-2.4); PHOSPHORUS 2.9 mg/dL (2.5-4.9); POTASSIUM 4.1 mmol/L (3.5-5.1); SODIUM SERUM 143 mmol/L (136-145); UREA NITROGEN, BLOOD 35 mg/dL (7-18)
--- NOTE | 2017-08-20 06:57 | NUR ---
RE RECORDING MIXER CLOSING NOTE PT REMAINS IN NO ACUTE DISTRESS AT THE END OF THE SHIFT. SB ON THE TELE. [place] SPEAKING BUT CAN MAKE NEEDS KNOWN. F/C IS CLEAN DRY AND DRAINING URINE. JAN PICC LINE IS CLEAN DRY AND INTACT RUNNING TKO. ALL DUE MEDICATIONS GIVEN AND TOLERATED. WILL ENDORSE CARE TO AM NURSE.
[2017-08-20 08:00] VITALS: BP 140/55
[2017-08-20] MEDS: LEVOTHYROXINE SODIUM 50 MCG TABLET PO SCH (08:46)
[2017-08-20] MEDS: ISOSORBIDE MONONITRATE (30MG) 30 MG TAB.SR.24H PO SCH (08:46)
[2017-08-20] MEDS: TAMSULOSIN 0.4 MG CAP.SR.24H PO SCH (08:46)
[2017-08-20] MEDS: DOCUSATE SODIUM 100 MG CAPSULE PO SCH ×2 (08:46→17:00)
[2017-08-20] MEDS: DUTASTERIDE (0.5 MG) 0.5 MG CAPSULE PO SCH (08:47)
[2017-08-20] MEDS: PANTOPRAZOLE 40 MG VIAL IV SCH (08:47)
[2017-08-20] MEDS: CARVEDILOL 6.25 MG TABLET PO SCH ×2 (08:48→17:00)
[2017-08-20] MEDS: ENOXAPARIN SODIUM 30 MG/0.3 ML DISP.SYRIN SQ SCH (08:48)
[2017-08-20] MEDS: BLOOD SUGAR DIAGNOSTIC 1 EACH STRIP IN SCH ×4 (08:48→21:07)
[2017-08-20] MEDS ORDERED: AMLODIPINE BESYLATE 10 MG TABLET PO SCH (09:00)
[2017-08-20 09:01] LABS: EOSINOPHILS % (MANUAL) 5 % (0-4); LYMPHOCYTES % (MANUAL) 18 % (16-48); MONOCYTES % (MANUAL) 21 % (0-11.0); NEUTROPHILS % (MANUAL) 56 (42-76)
[2017-08-20] MEDS ORDERED: Magnesium 1GM/D5W 100ML PREMIX 100 ML IV SCH (11:23)
[2017-08-20 16:00] VITALS: BP 99/42
--- NOTE | 2017-08-20 18:42 | NUR ---
RN NOTE THROUGH SHIFT PATIENT WAS MADE COMFORTABLE. HE AMBULATED AT LENGTH WITH SON AT HIS SIDE. NO COMPLICATION WITH BREATHING PATTERN. NO NOTED ADVERSE REACTION TO MEDICATION. NO NEW SKIN BREAK DOWN. F/C REMOVED @ 1800, INSTRUCTED PATIENT AND FAMILY TO MONITOR URINE OUTPUT. 1 BM. TOLERATING PO INTACT. ABDOMINAL NIKITA INTACT. PATIENT DENIES PAIN AT THIS TIME. SON AND PATIENT VERBALIZED UNDERSTANDING OF EDUCATION PROVIDED. PROVIDED ASSISTANCE WITH HYGIENE. CALL LIGHT IN REACH.
[2017-08-20 20:00] VITALS: BP_SYST 125; BP_DIAS 47; BP_DIAS 73
[2017-08-20] MEDS: ATORVASTATIN 10 MG TABLET PO SCH (21:06)
[2017-08-21] MEDS: METOCLOPRAMIDE HCL 10 MG/2 ML VIAL IV SCH ×2 (00:33→05:21)
[2017-08-21 04:00] VITALS: BP 141/45
[2017-08-21] MEDS: PIPERACILLIN /TAZOBACTAM 2.25 G in IV D5W 50 ML IV SCH (05:21)
[2017-08-21] MEDS: hydrALAZINE HCL 25 MG TABLET PO SCH (05:22)
[2017-08-21 06:27] LABS: BASOPHILS % (AUTO) 0.3 % (0.0-2.0); EOSINOPHILS # (AUTO) 0.1 /CMM (0.0-0.7); EOSINOPHILS % (AUTO) 1.2 % (0.0-6.0); HEMATOCRIT 29 % (39-51); HEMOGLOBIN 9.6 g/dL (13.5-17.5); LYMPHOCYTES # (AUTO) 1.9 /CMM (0.8-4.8); LYMPHOCYTES % (AUTO) 20.1 % (20.0-44.0); MEAN CORPUSCULAR HEMOGLOBIN 27 PG (26.0-33.0); MEAN CORPUSCULAR HGB CONC 33 g/dl (31.0-36.0); MEAN CORPUSCULAR VOLUME 82 fL (80-96); MONOCYTES # (AUTO) 1.5 /CMM (0.1-1.30); MONOCYTES % (AUTO) 15.6 % (2.0-12.0); NEUTROPHILS % (AUTO) 62.8 % (43.0-81.0); PLATELET COUNT (AUTO) 225 /CMM (150-450); RDW COEFFICIENT OF VARIATION 16.5 (11.5-15.0); RED BLOOD CELL COUNT(AUTO) 3.55 MIL/uL (4.5-6.0); WHITE BLOOD COUNT (AUTO) 9.5 K/uL (4.3-11.0)
[2017-08-21] MEDS: BLOOD SUGAR DIAGNOSTIC 1 EACH STRIP IN SCH (06:37)
[2017-08-21 06:47] LABS: CALCIUM, SERUM 8.1 mg/dL (8.5-10.1); CARBON DIOXIDE 23 mmol/L (21-32); CHLORIDE 106 mmol/L (98-107); CREATININE 2.5 mg/dL (0.6-1.3); GLUCOSE 111 mg/dL (74-106); SODIUM SERUM 140 mmol/L (136-145); UREA NITROGEN, BLOOD 42 mg/dL (7-18)
[2017-08-21 06:57] LABS: LYMPHOCYTES % (MANUAL) 28 % (16-48); MONOCYTES % (MANUAL) 16 % (0-11.0); NEUTROPHILS % (MANUAL) 56 (42-76)
--- NOTE | 2017-08-21 07:00 | NUR ---
MS RN NOTE: RECEIVED PT AWAKE IN BED. PATIENT IS [place] SPEAKING, A&0X2-3. ON 3LPM NC, RESPIRATIONS EVEN AND UNLABORED WITH NO SOB NOTED. ABDOMINAL DRESSING C/D/I WITH BINDER. JAN PICC LINE PATENT AND INTACT. BED LOW, LOCKED, X2 SIDE RAILS UP WITH CALL LIGHT WITHIN REACH. WILL CONT TO MONITOR.
[2017-08-21 08:00] VITALS: BP 143/47
[2017-08-21] MEDS: LEVOTHYROXINE SODIUM 50 MCG TABLET PO SCH (08:35)
[2017-08-21 08:36] VITALS: BP 143/47
[2017-08-21] MEDS: TAMSULOSIN 0.4 MG CAP.SR.24H PO SCH (08:36)
[2017-08-21] MEDS: DOCUSATE SODIUM 100 MG CAPSULE PO SCH (08:36)
[2017-08-21] MEDS: DUTASTERIDE (0.5 MG) 0.5 MG CAPSULE PO SCH (08:36)
[2017-08-21] MEDS: ISOSORBIDE MONONITRATE (30MG) 30 MG TAB.SR.24H PO SCH (08:36)
[2017-08-21] MEDS: PANTOPRAZOLE 40 MG VIAL IV SCH (08:36)
[2017-08-21] MEDS: CARVEDILOL 6.25 MG TABLET PO SCH (08:36)
[2017-08-21] MEDS: ENOXAPARIN SODIUM 30 MG/0.3 ML DISP.SYRIN SQ SCH (08:41)
[2017-08-21] MEDS ORDERED: ASPIRIN EC 81 MG TABLET.DR PO SCH (09:00)
[2017-08-21] MEDS ORDERED: HYDR-552 PO ×2 (09:49→12:09)
[2017-08-21] MEDS ORDERED: ONDA4TAB8 PO (09:49)
[2017-08-21] MEDS ORDERED: LEVO500T15 PO (12:09)
[2017-08-21] MEDS ORDERED: ONDA4TAB8 SL (12:09)
--- NOTE | 2017-08-21 12:30 | NUR ---
MS RN NOTE: PATIENT D/C BACK HOME TODAY IN STABLE CONDITION. VS: 98.2 TEMP, 60 HR, 19 RR, 99% O2 SAT, 143/47 BP. D/C FORMS AND BELONGINGS LIST SIGNED. BELONGINGS RETURNED. INSTRUCTIONS GIVEN AND PATIENT WITH FAMILY VERBALLY UNDERSTOOD. ORDERS CARRIED OUT. PATIENT LEFT THE UNIT VIA WHEELCHAIR AT 1230 ACCOMPANIED BY FAMILY.
== END 2017-08-21 12:29 | disposition home or self-care (01) | DRG 853 ==
LOC: ER 18:09 → TELE 22:37 → ICU 08-14 18:53 → ICUOV 08-18 20:00 → TELE1 08-19 10:07 → MEDSG1 08-20 08:50
PROVIDERS: ADMIT Nurse Practitioner Acute Care; ATTEND Nurse Practitioner Acute Care
PROC: 02HV33Z Insertion of Infusion Device into Superior Vena Cava, Percutaneous Approach (ICD-10-PCS; 2017-08-14)
PROC: B548ZZA Ultrasonography of Superior Vena Cava, Guidance (ICD-10-PCS; 2017-08-14)
PROC: 30233N1 Transfusion of Nonautologous Red Blood Cells into Peripheral Vein, Percutaneous Approach (ICD-10-PCS; 2017-08-15)
PROC: 0DBA0ZZ Excision of Jejunum, Open Approach (ICD-10-PCS; principal; 2017-08-17 08:00)
PROC: 0DBV0ZX Excision of Mesentery, Open Approach, Diagnostic (ICD-10-PCS; 2017-08-17 08:00)
DX: A41.9 Sepsis, unspecified organism (principal); N17.0 Acute kidney failure with tubular necrosis; J96.01 Acute respiratory failure with hypoxia; I50.43 Acute on chronic combined systolic (congestive) and diastolic (congestive) heart failure; K55.9 Vascular disorder of intestine, unspecified; N28.1 Cyst of kidney, acquired; K65.4 Sclerosing mesenteritis; I25.5 Ischemic cardiomyopathy; I25.10 Atherosclerotic heart disease of native coronary artery without angina pectoris; I13.0 Hypertensive heart and chronic kidney disease with heart failure and stage 1 through stage 4 chronic kidney disease, or unspecified chronic kidney disease; N39.0 Urinary tract infection, site not specified; E11.22 Type 2 diabetes mellitus with diabetic chronic kidney disease; R65.20 Severe sepsis without septic shock; N18.9 Chronic kidney disease, unspecified; B96.20 Unspecified Escherichia coli [E. coli] as the cause of diseases classified elsewhere; E03.9 Hypothyroidism, unspecified; D63.8 Anemia in other chronic diseases classified elsewhere; E78.5 Hyperlipidemia, unspecified; I25.2 Old myocardial infarction; Z87.891 Personal history of nicotine dependence; N40.1 Benign prostatic hyperplasia with lower urinary tract symptoms; J44.9 Chronic obstructive pulmonary disease, unspecified; K59.00 Constipation, unspecified; K44.9 Diaphragmatic hernia without obstruction or gangrene; G47.33 Obstructive sleep apnea (adult) (pediatric)
CPT/HCPCS: 36415; 36569; 36600; 71010-TC; 76700-TC; 80048-TC; 80076-TC; 80202-TC; 82803-TC; 82962-TC; 83605-TC; 83690-TC; 83735-TC; 84100-TC; 84132-TC; 84484-TC; 85025-TC; 85610-TC; 85730-TC; 86850-TC; 86921-TC; 87040-TC; 87081-TC; 87086-TC; 88305-TC; 88307-TC; 93307-TC; 94003-TC; 94799-TC; 97116-TC; 97530-TC; A4216; A4606; A6209; A6402; C1751; C9113; J0330; J1100; J1170; J1644; J1650; J1815; J1940; J2060; J2250; J2270; J2405; J2543; J2704; J2765; J3370; J3475; J3480; J3490; J7030; J7040; J7050; J7060; P9016-BL; Q9963; Z7610

== ENCOUNTER 2018-08-15 13:00 | Emergency (ER) | payer MEDICARE, OTHER ==
[~2018-08-15] VITALS: Ht 157.5 cm; Wt 68.0 kg
[2018-08-15 13:00] VITALS: BP 122/67
[~2018-08-15 13:00] MED LIST changes: +ALBU18HF2 INH; +AMLO10TA6 PO; +ASPI-1169 PO; +CARV6.252 PO; +DULO30CA2 PO; +DUTA0.5C PO; +ESOM40CA PO; +FURO40TA5 PO; +GLIM1TAB2 PO; +HYDR-552 PO; +ISOS30TA6 PO; +LEVO500T75 PO; +LEVO50TA8 PO; +LOSA1TAB36 PO; +ONDA4TAB8 PO; +ONDA4TAB8 SL; +ROSU20TA PO
[2018-08-15] MEDS ORDERED: FAMOTIDINE/PF INJ 20 MG/2 ML VIAL IV ONE ×2 (13:30→13:42)
[2018-08-15] MEDS ORDERED: predniSONE 20 MG TABLET PO ONE (13:30)
[2018-08-15] MEDS ORDERED: diphenhydrAMINE HCL 50 MG/ML VIAL IV ONE (13:30)
[2018-08-15] MEDS ORDERED: diphenhydrAMINE HCL 50 MG/ML VIAL ONE (13:41)
[2018-08-15] MEDS ORDERED: diphenhydrAMINE HCL ELIX 25 MG/10 ML UDC ONE (13:41)
[2018-08-15] MEDS ORDERED: predniSONE 20 MG TABLET ONE (13:42)
[2018-08-15] MEDS ORDERED: ALBUTEROL FS 2.5 MG/3 ML VIAL.NEB ONE (13:57)
[2018-08-15] MEDS ORDERED: ALBUTEROL FS 2.5 MG/0.5 ML VIAL.NEB NEB ONE (14:00)
== END 2018-08-15 14:59 | disposition home or self-care (01) ==
LOC: ER 13:07
DX: L50.0 Allergic urticaria (principal); I10 Essential (primary) hypertension; K55.059 Acute (reversible) ischemia of intestine, part and extent unspecified; N28.9 Disorder of kidney and ureter, unspecified; Z79.82 Long term (current) use of aspirin
CPT/HCPCS: 94640; 96374; 96375; 99284; A4606; J1200; J3490; J7512; Q0163; Z7610

== ENCOUNTER 2019-12-31 17:42 | Emergency (ER) | payer MEDICARE, OTHER ==
[~2019-12-31] VITALS: Ht 160 cm; Wt 59.0 kg
[~2019-12-31 17:42] MED LIST changes: -AMLO10TA6 PO; +AMLO10TA7 PO; +GLIM1TAB18 PO; -GLIM1TAB2 PO; +HYDR-4384 PO; -HYDR-552 PO; -ROSU20TA PO; +ROSU20TA2 PO
--- NOTE | 2019-12-31 18:00 | NUR ---
PT TO ED BED 08. BIB SON C/O LOWER ABDOMINAL PAIN THAT STARTED AT NOON TIME TODAY. FAMILY DENIES N/V/D. PLACED ON MONITOR. AWAITING MD BERKOWITZ.
--- NOTE | 2019-12-31 18:06 | NUR ---
DR HUNTER AT BEDSIDE FOR EVAL.
[2019-12-31 18:26] LABS: LYMPHOCYTES # (AUTO) 1.8 /CMM (0.8-4.8); MEAN CORPUSCULAR HGB CONC 31 g/dl (31.0-36.0); RED BLOOD CELL COUNT(AUTO) 4.27 MIL/uL (4.5-6.0)
[2019-12-31] MEDS ORDERED: ONDANSETRON HCL/PF 4 MG/2 ML VIAL ONE (18:28)
[2019-12-31] MEDS ORDERED: MORPHINE SULFATE INJ 2 MG/ML DISP.SYRIN ONE (18:28)
[2019-12-31 18:30] LABS: BASOPHILS % (AUTO) 0.4 % (0.0-2.0); EOSINOPHILS % (AUTO) 1.4 % (0.0-6.0); HEMATOCRIT 35 % (39-51); LYMPHOCYTES % (AUTO) 24.1 % (20.0-44.0); MEAN CORPUSCULAR VOLUME 82 fL (80-96); MONOCYTES # (AUTO) 1.6 /CMM (0.1-1.30); MONOCYTES % (AUTO) 21.8 % (2.0-12.0); NEUTROPHILS # (AUTO) 3.8 /CMM (1.8-8.9); NEUTROPHILS % (AUTO) 52.3 % (43.0-81.0); PLATELET COUNT (AUTO) 250 /CMM (150-450); WHITE BLOOD COUNT (AUTO) 7.3 K/uL (4.3-11.0)
[2019-12-31] MEDS ORDERED: ONDANSETRON HCL/PF 4 MG/2 ML VIAL IVP ONE (18:30)
[2019-12-31] MEDS ORDERED: IV NS 0.9% 500 ML BAG IV ONE (18:30)
[2019-12-31] MEDS ORDERED: MORPHINE SULFATE INJ 2 MG/ML DISP.SYRIN IV ONE (18:30)
[2019-12-31 18:36] LABS: CALCIUM, SERUM 8.8 mg/dL (8.5-10.1); CARBON DIOXIDE 25 mmol/L (21-32); CHLORIDE 106 mmol/L (98-107); CREATININE 2.1 mg/dL (0.6-1.3); GLUCOSE 141 mg/dL (74-106); POTASSIUM 4.3 mmol/L (3.5-5.1); SODIUM SERUM 142 mmol/L (136-145); UREA NITROGEN, BLOOD 53 mg/dL (7-18)
[2019-12-31 18:41] LABS: ALANINE AMINOTRANSFERASE 11 U/L (12-78); ALBUMIN 3.6 g/dL (3.4-5.0); ALKALINE PHOSPHATASE 75 U/L (46-116); ASPARTATE AMINOTRANSFERASE 14 U/L (15-37); BILIRUBIN,DIRECT 0.1 mg/dL (0.0-0.2); BILIRUBIN,TOTAL 0.5 mg/dL (0.2-1.0); LIPASE 124 U/L (73-393); TOTAL PROTEIN, SERUM 7.6 g/dL (6.4-8.2)
--- NOTE | 2019-12-31 18:47 | NUR ---
PT TO RADIOLOGY FOR ABDOMINAL CT SCAN VIA [facility].
[2019-12-31 19:13] LABS: BAND % (MANUAL) 1 % (0.0-5.0); EOSINOPHILS % (MANUAL) 1 % (0-4); LYMPHOCYTES % (MANUAL) 22 % (16-48); MONOCYTES % (MANUAL) 16 % (0-11.0); NEUTROPHILS % (MANUAL) 60 (42-76)
--- NOTE | 2019-12-31 19:18 | NUR ---
REPORT GIVEN TO ACCOUNTING FILE CLERK NURSE PAULA FOR TEX.
[2019-12-31 19:21] LABS: APPEARANCE,URINE Clear (CLEAR); BILIRUBIN,URINE Negative (NEGATIVE); BLOOD, URINE Large Ery/uL (NEGATIVE); COLOR,URINE Yellow (YELLOW); KETONES,URINE Negative (NEGATIVE); LEUKOCYTE ESTERASE ,URINE Trace (NEGATIVE); NITRITE, URINE Negative (NEGATIVE); PH,URINE 5.5 (5.0-8.0); PROTEIN,URINE 100 mg/dl (NEGATIVE); UGLUCOSE Negative (NEGATIVE); UROBILINOGEN,URINE 0.2 EU/dL (0.2)
[2019-12-31 19:33] LABS: BACTERIA,URINE Few /HPF (None Seen); RBC,URINE TOO NUMEROUS TO COUN /HPF (0-2); SQUAMOUS EPITHELIAL CELL,UR Few /HPF (None Seen)
--- NOTE | 2019-12-31 20:03 | NUR ---
CALLED [employer]INEERING MANAGER UROLOGIST FOR DR EMMA TAYLOR
--- NOTE | 2019-12-31 20:20 | NUR ---
Patient discharged to home in stable condition. Written and verbal after care instructions given. Patient verbalizes understanding of instruction.IV removed. Catheter intact and site benign. Pressure and 4x4 applied to site. No bleeding noted. Pt ambulatory with a steady gait
[2019-12-31 20:21] VITALS: BP 155/62
== END 2019-12-31 20:22 | disposition home or self-care (01) ==
LOC: ER 17:48
DX: R31.9 Hematuria, unspecified (principal); I11.0 Hypertensive heart disease with heart failure; I50.9 Heart failure, unspecified; Z79.82 Long term (current) use of aspirin; Z79.899 Other long term (current) drug therapy
CPT/HCPCS: 36415; 74176; 80048; 80076; 81001; 83605; 83690; 84484; 85025; 85730; 96374; 96375; 99284; J2270; J2405; J7040; 81000-TC

== ENCOUNTER 2019-12-31 22:47 | Emergency (ER) | payer MEDICARE, OTHER ==
[~2019-12-31] VITALS: Ht 152.4 cm; Wt 65.3 kg
--- NOTE | 2019-12-31 23:06 | NUR ---
PT PRESENTED TO THE ER WITH A C/O ABD PAIN. PT WAS IN THE ER EARLIER TODAY AND WAS DX WITH HEMATURIA AND TOLD TO F/U WITH UROLOGY. PT'S SON STATED THAT THE PT WAS OK, BUT THE PAIN MEDICATION WORE OFF AND PT IS IN A LOT OF PAIN. PT WAS CONNECTED TO THE MONITOR AND CONTINUOUS PULSE OX.
--- NOTE | 2019-12-31 23:09 | NUR ---
DR MULLEN IS AT THE BEDSIDE.
[2019-12-31] MEDS ORDERED: ONDANSETRON 4 MG TAB.RAPDIS ONE (23:14)
[2019-12-31] MEDS ORDERED: MORPHINE SULFATE INJ 4 MG/ML DISP.SYRIN ONE ×2 (23:14→23:18)
--- NOTE | 2019-12-31 23:25 | NUR ---
PT REC'D MEDICATION ORDERED. Patient discharged to home in stable condition. Written and verbal after care instructions given. Patient verbalizes understanding of instruction. PT'S SON TO FILL THE RX THAT HE REC'D EARLIER. PT AMBULATED OUT WITH A STEADY GAIT.
[2019-12-31 23:29] VITALS: BP 161/69
[2019-12-31] MEDS ORDERED: MORPHINE SULFATE INJ 2 MG/ML DISP.SYRIN IM ONE (23:30)
[2019-12-31] MEDS ORDERED: ONDANSETRON 4 MG TAB.RAPDIS SL ONE (23:30)
== END 2019-12-31 23:30 | disposition home or self-care (01) ==
LOC: ER 22:49
DX: R31.9 Hematuria, unspecified (principal); I11.0 Hypertensive heart disease with heart failure; I50.9 Heart failure, unspecified; D64.9 Anemia, unspecified; Z79.899 Other long term (current) drug therapy; Z79.82 Long term (current) use of aspirin
CPT/HCPCS: 96372; 99283; J2270; Q0162